=== PATIENT | female | born 1955 | race Two or more races ===

== ENCOUNTER 2024-07-20 06:34 | Day surgery (SDC) | payer OTHER, SELFPAY ==
--- NOTE | 2024-07-19 10:14 | EKG_ITS ---
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
[2024-07-19 10:28] VITALS: BMI 32.2
[2024-07-19 15:43] LABS: Basophils # (Auto) 0.1 Thou/mm3 (0.0-0.2); Basophils % (Auto) 1 % (0-2.5); Eosinophils # (Auto) 0.1 Thou/mm3 (0.0-0.5); Eosinophils % (Auto) 1 % (0-10); Hematocrit 37.7 % (36.0-46.0); Hemoglobin 12.1 g/dL (12.0-16.0); Immature Granulocytes % (Auto) 1 % (0-0); Immature Granulocytes Auto 0.06 Thou/mm3 (0.00-0.00); Lymphocytes # (Auto) 2.7 Thou/mm3 (1.0-4.8); Lymphocytes % (Auto) 31 % (10-50); Mean Corpuscular HGB Conc 32.1 g/dl (31.0-37.0); Mean Corpuscular Hemoglobin 27.1 pg (25.0-35.0); Mean Corpuscular Volume 84 fL (80-100); Monocytes # (Auto) 0.7 Thou/mm3 (0.0-0.8); Monocytes % (Auto) 8 % (0-12); Neutrophils % (Auto) 58 % (37-80); Nucleated Red Blood Cell % 0 /100 WBC (0); Platelet Count 378 Thou/mm3 (140-440); Red Blood Count 4.47 Miln/mm3 (4.00-5.20); White Blood Count 8.6 Thou/mm3 (3.6-11.0)
[2024-07-19 16:02] LABS: Anion Gap 6 (7-16); BUN/Creatinine Ratio 26 Ratio (12-20); Blood Urea Nitrogen 21 mg/dL (9-23); Calcium 9.7 mg/dL (8.3-10.6); Carbon Dioxide 31.3 mMol/L (20.0-31.0); Chloride 101 mMol/L (98-107); Creatinine (Component) 0.8 mg/dL (0.6-1.3); Estimated Creatinine Clearance 66.6 mL/min (>60); Glucose 234 mg/dL (74-106); Osmolality,Calculated 286 (275-295); Potassium 4.1 mMol/L (3.4-5.1); Sodium 138 mMol/L (136-145); eGFR > 60 See Note
[2024-07-19 16:10] LABS: Partial Thromboplastin Time 49.5 Seconds (22.0-36.0); Prothrombin Time 10.8 Seconds (9.0-12.2)
[2024-07-20] VITALS (12 sets, daily range): BP systolic 107–160; BP diastolic 59–99; PULSE 64–76; RESP 12–19; TEMP 36.8–36.9; O2SAT 95–97; BMI 32.5
[2024-07-20] MEDS: SODIUM CHLORIDE 0.45 % 100 ML IV (07:55)
--- NOTE | 2024-07-20 19:09 | ESOP_ITS ---
RE: KENYATTA SAUCEDO : 1955 DATE OF OPERATION: 07/20/2024 PROCEDURE PERFORMED: 1. Diagnostic left heart cardiac catheterization, selective coronary angiogram, left ventricular angiogram, CPT 50705. 2. PCI, PTCA, stent placement of the mid left circumflex artery, placement of drug-eluting stent, 2.75 x 16 mm Synergy stent. Preprocedure stenosis is 90%, postprocedure 0%. Preprocedure YASMEEN flow 2, postprocedure YASMEEN flow 3, CPT 89242. 3. Conscious sedation for one-hour duration. 4. Ultrasound-guided access, right radial artery procedure. 5. TR band application. DIAGNOSES: Coronary artery disease, angina pectoris, abnormal stress test. HISTORY AND INDICATIONS: The patient is a 68-year-old lady with history of hypertension, diabetes mellitus, hypercholesterolemia, strong family history of CAD, who has abnormal stress test, angina pectoris, chest pain, shortness of breath on minimal exertion, class 3 angina. Coronary angiogram and cardiac catheterization was recommended to assess if the patient is a candidate for intervention. DESCRIPTION OF PROCEDURE: The patient was brought to the cardiac catheterization laboratory. She was given 2 mg Versed and 50 mcg of fentanyl for sedation. Right radial artery cannulated with micropuncture technique, given 1% Xylocaine for local anesthesia. Right 6-Tamazight glide sheath was introduced. Radial cocktail with 3000 units heparin was given. Selective right and left coronary angiogram, left heart catheterization, LV angiogram performed by 5-Tamazight TIG-4 diagnostic catheter. Diagnostic procedure was tolerated very well. Following findings were seen. Right coronary artery is large and dominant, showed mild stenosis, 40% narrowing proximal RCA. Left coronary system: Left main coronary artery showed calcification. No significant stenosis. Left anterior descending artery, proximal mid segment showed mild plaque, but after the second diagonal branch, there is diffuse stenosis in the mid and distal segment, 50% to 60% narrowing, long narrowing with negative remodeling of the vessel to 1.5 to 2 mm diameter. Ramus intermedius is a small branch 1.5 mm, which showed 90% stenosis, not suitable for PCI. Circumflex artery is fairly good size 2.75 mm diameter, showed evidence of 90% stenosis of mid circumflex artery, subsequently large PL branches. This appears to be a culprit lesion causing symptoms despite having other vessels and PCI was recommended. The patient was given additional 3000 units of heparin and one more 1000 units. ACT was therapeutic. Proceeded with PCI. Left coronary artery engaged using a 6-Tamazight Voda left VL3 guiding catheter. A 0.014 Runthrough cross the lesion successfully. Pre-dilation of the lesion was performed with 2.5 mm Emerge balloon. Subsequently, a 2.75 x 16 mm Synergy drug eluting stent was deployed using two inflations at maximum 14 atmospheres of pressure. Final angiogram showed widely patent circumflex artery, no residual stenosis. SUMMARY OF FINDINGS AND SUGGESTIONS: Severe multivessel coronary artery disease, underwent successful PCI, stent placement to the mid circumflex artery with no complications. The patient also has diffuse disease of the distal LAD and small ramus intermedius and multiple other segments, but not suitable for revascularization for other vessels. Left heart catheterization showed left ventricular pressure normal at 100/10, aortic pressure . No gradient across the aortic valve. Left ventricular showed normal left ventricular wall motion. Ejection fraction 70%. FINAL SUMMARY SHOWED: 1. Multivessel coronary artery disease, underwent successful PCI and stent placement to mid circumflex artery. 2. Normal left ventricular function. RECOMMENDATIONS: The patient continued on aspirin and Brilinta. 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 She will be discharged home on aspirin 81 mg daily, Brilinta 90 mg twice daily, and follow up in one week. DT: 09:10:36 TT: 11:09:00 Ref: [id number] - TID: [id number]
== END 2024-07-20 12:45 | disposition home or self-care (01) ==
PROVIDERS: PCP Family Medicine; Referring Provider Internal Medicine Cardiovascular Disease; Visit Provider Internal Medicine Cardiovascular Disease
PROC: (CPT 93458; principal; 2024-07-20 07:30)
DX: I25.118 Atherosclerotic heart disease of native coronary artery with other forms of angina pectoris (principal); E11.9 Type 2 diabetes mellitus without complications; E78.00 Pure hypercholesterolemia, unspecified; I10 Essential (primary) hypertension; Z01.810 Encounter for preprocedural cardiovascular examination
CPT/HCPCS: 93458; C9600; 36415; 80048; 85025; 85347; 85610; 85730; 93005; 99152; 99153; A4649; C1725; C1769; C1874; C1887; C1894; J0171; J0461; J1643; J2250; J2310; J2371; J3010; J3490; J7030; Q9967; A9270; J2305

== ENCOUNTER → 2024-08-16 | Outpatient (CLI) | payer OTHER, SELFPAY ==
[2024-08-16 08:04] LABS: Collection Type, Urine Clean Catch
[2024-08-16 08:34] LABS: Basophils # (Auto) 0.1 Thou/mm3 (0.0-0.2); Basophils % (Auto) 1 % (0-2.5); Eosinophils # (Auto) 0.1 Thou/mm3 (0.0-0.5); Eosinophils % (Auto) 1 % (0-10); Hematocrit 37.3 % (36.0-46.0); Hemoglobin 11.9 g/dL (12.0-16.0); Immature Granulocytes % (Auto) 1 % (0-0); Immature Granulocytes Auto 0.05 Thou/mm3 (0.00-0.00); Lymphocytes # (Auto) 2.6 Thou/mm3 (1.0-4.8); Lymphocytes % (Auto) 28 % (10-50); Mean Corpuscular HGB Conc 31.9 g/dl (31.0-37.0); Mean Corpuscular Hemoglobin 27.1 pg (25.0-35.0); Mean Corpuscular Volume 85 fL (80-100); Monocytes # (Auto) 0.6 Thou/mm3 (0.0-0.8); Monocytes % (Auto) 7 % (0-12); Neutrophils % (Auto) 63 % (37-80); Nucleated Red Blood Cell % 0 /100 WBC (0); Platelet Count 392 Thou/mm3 (140-440); RDW Standard Deviation 46.8 fL (36.4-46.3); Red Blood Count 4.39 Miln/mm3 (4.00-5.20); White Blood Count 9.4 Thou/mm3 (3.6-11.0)
[2024-08-16 08:38] LABS: Glucose Estimated Average 140 mg/dL (80-131); Hemoglobin A1C 6.5 % Hgb (4.8-6.0)
[2024-08-16 08:42] LABS: Creatinine MALB Rnd Ur 44 mg/dL (30-125); Microalbumin, Random Urine < 3 mg/L (0-300)
[2024-08-16 08:47] LABS: Alanine Aminotransferase 17 U/L (10-49); Albumin, Serum 4.6 gm/dL (3.4-4.8); Alkaline Phosphatase 55 U/L (46-116); Anion Gap 7 (7-16); Aspartate Amino Transferase 16 U/L (0-34); BUN/Creatinine Ratio 30 Ratio (12-20); Bilirubin,Total 0.3 mg/dL (0.3-1.2); Blood Urea Nitrogen 18 mg/dL (9-23); Calcium 9.5 mg/dL (8.3-10.6); Calcium (Corrected) 9.5 mg/dL (8.5-10.1); Carbon Dioxide 30.9 mMol/L (20.0-31.0); Cardiac Risk Estimate 2.8 RATIO (3.7-5.6); Chloride 102 mMol/L (98-107); Cholesterol 104 mg/dL (132-200); Creatinine (Component) 0.6 mg/dL (0.6-1.3); Globulin 2.3 gm/dL (2.3-3.5); Glucose 77 mg/dL (74-106); HDL Cholesterol 37 mg/dL (40-60); LDL Cholesterol,Calculated 40 mg/dL (0-130); Osmolality,Calculated 280 (275-295); Potassium 4.7 mMol/L (3.4-5.1); Sodium 140 mMol/L (136-145); Thyroid Stimulating Hormone 1.45 uIU/mL (0.55-4.78); Total Protein 6.9 gm/dL (5.7-8.2); Triglycerides 137 mg/dL (30-150); eGFR > 60 See Note
[2024-08-16 08:52] LABS: Bacteria,Urine 1+; Bilirubin,Urine Negative (Negative); Blood,Urine Negative (Negative); Clarity,Urine Clear (Clear/Hazy); Color,Urine Lt-Yellow (Lt Yel-Yel); Glucose, Urine Negative (Negative); Ketones,Urine Negative (Negative); Leukocyte Esterase,Urine Positive (Negative); Nitrite,Urine Positive (Negative); PH,Urine 6.5 (5.0-7.0); Protein,Urine Negative (Neg - Trace); RBC,Urine 3 /hpf (0-3); Specific Gravity,Urine 1.014 (1.001-1.035); Squamous Epithelial Cell,Urine 2 /hpf (0-5); Urobilinogen,Urine Negative mg/dL (0.0-1.0); WBC,Urine 34 /hpf (0-5)
== END | disposition home or self-care (01) ==
LOC: COPL 07:19
PROVIDERS: PCP Family Medicine; Referring Provider Family Medicine; Visit Provider Internal Medicine Cardiovascular Disease
DX: Z00.00 Encounter for general adult medical examination without abnormal findings (principal); E11.59 Type 2 diabetes mellitus with other circulatory complications; E78.2 Mixed hyperlipidemia; I10 Essential (primary) hypertension
CPT/HCPCS: 36415; 80053; 80061; 81001; 82043; 82570; 83036; 84443; 85025

== ENCOUNTER → 2025-01-26 | Outpatient (CLI) | payer OTHER, SELFPAY ==
[2025-01-26 08:44] LABS: Glucose Estimated Average 131 mg/dL (80-131); Hemoglobin A1C 6.2 % Hgb (4.8-6.0)
[2025-01-26 09:07] LABS: Alanine Aminotransferase 16 U/L (10-49); Albumin, Serum 4.6 gm/dL (3.4-4.8); Albumin/Globulin Ratio 2.0 (1.2-2.2); Alkaline Phosphatase 49 U/L (46-116); Anion Gap 10 (7-16); Aspartate Amino Transferase 20 U/L (0-34); BUN/Creatinine Ratio 26 Ratio (12-20); Bilirubin,Total 0.3 mg/dL (0.3-1.2); Blood Urea Nitrogen 18 mg/dL (9-23); Calcium 9.1 mg/dL (8.3-10.6); Calcium (Corrected) 9.1 mg/dL (8.5-10.1); Carbon Dioxide 28.7 mMol/L (20.0-31.0); Cardiac Risk Estimate 3.1 RATIO (3.7-5.6); Chloride 102 mMol/L (98-107); Cholesterol 107 mg/dL (132-200); Creatinine (Component) 0.7 mg/dL (0.6-1.3); Globulin 2.3 gm/dL (2.3-3.5); Glucose 110 mg/dL (74-106); HDL Cholesterol 35 mg/dL (40-60); LDL Cholesterol,Calculated 50 mg/dL (0-130); Osmolality,Calculated 284 (275-295); Potassium 4.0 mMol/L (3.4-5.1); Sodium 141 mMol/L (136-145); Total Protein 6.9 gm/dL (5.7-8.2); Triglycerides 109 mg/dL (30-150); eGFR > 60 See Note
== END | disposition home or self-care (01) ==
LOC: COPL 08:00
PROVIDERS: PCP Family Medicine; Referring Provider Family Medicine; Visit Provider Family Medicine
DX: I25.10 Atherosclerotic heart disease of native coronary artery without angina pectoris (principal); E11.59 Type 2 diabetes mellitus with other circulatory complications; E78.2 Mixed hyperlipidemia; I10 Essential (primary) hypertension
CPT/HCPCS: 36415; 80053; 80061; 83036